=== PATIENT | male | born 1930 | race Caucasian/White ===

== ENCOUNTER 2017-01-01 14:53 | Emergency (ER) | payer MEDICARE, OTHER ==
--- NOTE | 2017-01-01 15:32 | ER Document Report ---
ED General <ELIZABET PEACE - Last Filed: 01/01/17 18:56> - General Mode of Arrival: Ambulatory Information source: Patient TRAVEL OUTSIDE OF THE [place] IN LAST 30 DAYS: No <FELTON SALAZAR - Last Filed: 01/01/17 19:52> - General Chief Complaint: Hip Pain Stated Complaint: ABDOMINAL PAIN Time Seen by Provider: 01/01/17 15:10 Notes: Patient is an 86 year old male that presents to the emergency department today with complaints of left groin pain. Patient states he was getting out of bed this morning and "heard a pop" and has been unable to ambulate since then. Patient states that he has0 been having frequent urination issues for quite some time, stating he usually urinates every 30 minutes. Patient states that he was recently put on 28 days of antibiotics secondary to a prostate infection. 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 A biopsy is scheduled for 01/11. Patient also mentions that two nights ago he had a syncopal episode. Patient states he had no injuries during the fall. (FELTON SALAZAR) Past Medical History - General Information source: Patient, Emergency Med Personnel - Social History Smoking Status: Never Smoker Cigarette use (# per day): No Chew tobacco use (# tins/day): No Frequency of alcohol use: None Drug Abuse: None Lives with: Family Family History: Reviewed & Not Pertinent Patient has suicidal ideation: No Patient has homicidal ideation: No - Past Medical History Cardiac Medical History: Reports: Hx Atrial Fibrillation, Hx Congestive Heart Failure, Hx Hypercholesterolemia, Hx Hypertension Endocrine Medical History: Reports: Hx Diabetes Mellitus Type 2 Malignancy Medical History: Reports Hx Prostate Cancer - ? Mass on prostate, biopsy scheduled for 01/09/17, Reports Hx Skin Cancer Past Surgical History: Reports: Hx Appendectomy, Hx Cholecystectomy, Hx Kidney ( Renal Surgery) - stones <FELTON SALAZAR - Last Filed: 01/01/17 19:52> Review of Systems - Review of Systems Constitutional: No symptoms reported EENT: No symptoms reported Cardiovascular: No symptoms reported Respiratory: No symptoms reported Gastrointestinal: No symptoms reported Genitourinary: See HPI, Dysuria, Frequency, Pain Male Genitourinary: No symptoms reported Musculoskeletal: See HPI, Other - left leg, left groin pain Skin: No symptoms reported Hematologic/Lymphatic: No symptoms reported Neurological/Psychological: No symptoms reported -: Yes All other systems reviewed and negative <FELTON SALAZAR - Last Filed: 01/01/17 19:52> Physical Exam <ELIZABET PEACE - Last Filed: 01/01/17 18:56> <FELTON SALAZAR - Last Filed: 01/01/17 19:52> - Vital signs Vitals: Temp Pulse Resp BP Pulse Ox 98.4 F 59 L 18 128/71 H 93 01/01/17 15:40 01/01/17 15:40 01/01/17 15:40 01/01/17 15:40 01/01/17 15:40 - Notes Notes: Physical Exam: General: Alert, appears age appropriate. HEENT: Normocephalic. Atraumatic. PERRL. Extraocular movements intact. Oropharynx clear. Neck: Supple. Non-tender. Respiratory: No respiratory distress. Clear and equal breath sounds bilaterally. Cardiovascular: Regular rate and rhythm. Abdominal: Obese. Non-tender. No distension. Normal Bowel Sounds. Back: Non-tender. No deformity or step off. Extremities: Moves all four extremities. Upper extremities: 3+ pitting edema bilaterally. Normal ROM. Lower extremities: Left groin tenderness with palpation musculature tenderness with palpation, no hernia appreciated. Neurological: Normal cognition. AAOx4. Normal speech. Psychological: Normal affect. Normal Mood. Skin: Warm. Dry. Normal color. (FELTON SALAZAR) Course - Laboratory Result Diagrams: 01/01/17 17:40 01/01/17 17:40 - Diagnostic Test Radiology reviewed: Image reviewed - KUB shows a lot of stool in the right colon , Reports reviewed - No acute process <ELIZABET PEACE - Last Filed: 01/01/17 18:56> - Laboratory Result Diagrams: 01/01/17 17:40 01/01/17 17:40 <FELTON SALAZAR - Last Filed: 01/01/17 19:52> - Re-evaluation Re-evalutation: 01/01/17 18:58 Patient laboratory evaluation is unremarkable. X-ray does show a lot of stool in the right colon. He does take MiraLAX on daily basis prior to starting pain medication recently. His daughter is a retired nurse and is at the bedside. She understands the difficulties he will be experiencing with his morbid obesity , unsteadiness on his feet, and newly acquired groin strain. She understands the need to have someone lift his legs up for him as he gets in and out of the bed. The need to have someone standing with him as he tries to walk with a walker. She will call his primary care provider tomorrow to arrange for some home care if it appears it will be needed. (ELIZABET PEACE) - Vital Signs Vital signs: Temp Pulse Resp BP Pulse Ox 97.9 F 64 16 109/74 98 01/01/17 19:00 01/01/17 19:00 01/01/17 19:00 01/01/17 19:00 01/01/17 19:00 - Laboratory Laboratory results interpreted by me: 01/01/17 01/01/17 01/01/17 15:55 17:40 17:40 RBC 3.88 L Hgb 12.8 L Hct 37.6 L RDW 16.3 H Lymphocytes % 7.9 L Eosinophils % 6.5 H BUN 39 H Creatinine 1.36 H Est GFR (Non-Af Amer) 50 L Total Protein 5.6 L Albumin 3.4 L Urine Blood MODERATE H Ur Leukocyte Esterase TRACE H Discharge <ELIZABET PEACE - Last Filed: 01/01/17 18:56> <FELTON SALAZAR - Last Filed: 01/01/17 19:52> - Discharge Clinical Impression: Groin strain Qualifiers: Encounter type: initial encounter Laterality: left Qualified Code(s): S76.212A - Strain of adductor muscle, fascia and tendon of left thigh, initial encounter Condition: Stable Disposition: HOME, SELF-CARE Additional Instructions: Inguinal Strain: You have an inguinal strain, also known as a pulled groin. This injury causes pain where the lower abdominal wall meets the upper leg. The strain can affect several different muscles and tendons. When it occurs during running, the injury usually affects the tendon or upper muscle fibers of the thigh muscles. With weight lifting, it's the lower fibers of the abdominal wall muscles that are most often strained. Running, lifting, squatting, or even walking can cause pain. A strain can take a few weeks to heal. Apply ice packs during the first couple of days following the injury. Antiinflammatory pain medication can help. Avoid lifting, running, jumping, and other activities that provoke pain. No hernia was found. But sometimes a hernia can begin with the same symptoms as a strain of the groin. If you find a lump or bulge in the groin, pain or swelling in the testicle, abdominal cramping, or vomiting, you should return for re-examination. //////////////////////////////////////////////////////////////////////////////// //////////////////////////////////////////////////////////////////////////////// ///////////////// Use your walker all the time, and have someone assist you when you are up attempting to walk. Have someone lift your legs for you as you get in and out of the bed, and assist you in getting up and down from sitting. Take the pain medications as prescribed if needed. Drink a bottle of citrate of magnesia this evening to help prevent constipation from worsening. Continue your daily MiraLAX, and increase your fluid intake. Call your primary care provider tomorrow to inquire about home health care if it appears it will be needed. RETURN TO THE EMERGENCY ROOM IF ANY NEW OR WORSENING SYMPTOMS. Prescriptions: Oxycodone HCl/Acetaminophen [Percocet 10-325 Mg Tablet] 1 each PO Q6 PRN #25 tablet PRN Reason: For Pain Referrals: DANIEL GOYAL MD [Primary Care Provider] - Follow up tomorrow Scribe Attestation: 01/01/17 15:39 I personally performed the services described in the documentation, reviewed and edited the documentation which was dictated to the scribe in my presence, and it accurately records my words and actions. (ELIZABET PEACE) Scribe Documentation - Scribe Written by Scribe:: Sonu Rivas, 01/01/2017 1842 acting as scribe for :: Samson <FELTON SALAZAR - Last Filed: 01/01/17 19:52>
[2017-01-01 16:12] LABS: APPEARANCE,URINE SLIGHTLY-CLOUDY; BILIRUBIN,URINE NEGATIVE (NEGATIVE); GLUCOSE, URINE NEGATIVE (NEGATIVE); KETONES,URINE NEGATIVE (NEGATIVE); LEUKOCYTE ESTERASE,URINE TRACE (NEGATIVE); NITRITE,URINE NEGATIVE (NEGATIVE); PROTEIN,URINE NEGATIVE (NEGATIVE); URINE SPECIFIC GRAVITY 1.013; UROBILINOGEN,URINE NEGATIVE mg/dL (<2.0)
--- NOTE | 2017-01-01 16:47 | RADIOLOGY REPORT (SQ) ---
EXAM DESCRIPTION: KUB/ABDOMEN (SINGLE VIEW) COMPLETED DATE/TIME: 01/01/2017 4:00 pm REASON FOR STUDY: Left groin strain, constipation COMPARISON: None. NUMBER OF VIEWS: One view. TECHNIQUE: Supine radiographic image of the abdomen acquired. LIMITATIONS: None. FINDINGS: BOWEL GAS PATTERN: Normal bowel gas pattern. No dilated loops. CALCIFICATIONS: No suspicious calcifications. SOFT TISSUES: No gross mass or suggestion of organomegaly. HARDWARE: None in the abdomen. BONES: No acute fracture. No worrisome bone lesions. OTHER: No other significant finding. IMPRESSION: NO RADIOGRAPHIC EVIDENCE FOR ACUTE ABDOMINAL DISEASE. TECHNICAL DOCUMENTATION: JOB ID: [id number] [employer]- All Rights Reserved
[2017-01-01 17:58] LABS: ABSOLUTE EOSINOPHILS # (AUTO) 0.6 10^3/uL (0.0-0.6); ABSOLUTE LYMPHOCYTES (AUTO) 0.7 10^3/uL (0.5-4.7); ABSOLUTE MONOCYTES (AUTO) 1.1 10^3/uL (0.1-1.4); ABSOLUTE NEUT (AUTO) 6.5 10^3/uL (1.7-8.2); BASOPHILS % (AUTO) 0.3 % (0-2); EOSINOPHILS % (AUTO) 6.5 % (0-6); HEMATOCRIT 37.6 % (37.9-51.0); HEMOGLOBIN 12.8 g/dL (13.5-17.0); HGB HCT DIFFERENCE 0.8; LYMPHOCYTES % (AUTO) 7.9 % (13-45); MEAN CORPUSCULAR HEMOGLOBIN 32.9 pg (27.0-33.4); MEAN CORPUSCULAR HGB CONC 33.9 g/dL (32.0-36.0); MEAN CORPUSCULAR VOLUME 97 fl (80-97); MONOCYTES % (AUTO) 12.6 % (3-13); RED BLOOD COUNT 3.88 10^6/uL (4.35-5.55); RED CELL DISTRIBUTION WIDTH 16.3 % (11.5-14.0); SEGMENTED NEUTROPHILS % (AUTO) 72.7 % (42-78); WHITE BLOOD COUNT 8.9 10^3/uL (4.0-10.5)
[2017-01-01 18:19] LABS: ALANINE AMINOTRANSFERASE 34 U/L (21-72); ALBUMIN 3.4 g/dL (3.5-5.0); ALKALINE PHOSPHATASE 81 U/L (38-126); ANION GAP 9 (5-19); ASPARTATE AMINO TRANSFERASE 27 U/L (17-59); BILIRUBIN,DIRECT 0.4 mg/dL (0.0-0.4); BILIRUBIN,TOTAL 0.7 mg/dL (0.2-1.3); BLOOD UREA NITROGEN 39 mg/dL (7-20); CALCIUM 9.4 mg/dL (8.4-10.2); CARBON DIOXIDE 29 mmol/L (22-30); CHLORIDE 105 mmol/L (98-107); CREATININE RESULT 1.36 mg/dL (0.52-1.25); GLUCOSE 92 mg/dL (75-110); POTASSIUM 4.6 mmol/L (3.6-5.0); TOTAL PROTEIN 5.6 g/dL (6.3-8.2)
[2017-01-01 19:01] VITALS: BP 109/74
== END 2017-01-01 19:55 | disposition home or self-care (01) ==
LOC: ER 14:53
DX: S76.212A Strain of adductor muscle, fascia and tendon of left thigh, initial encounter (principal); R10.30 Lower abdominal pain, unspecified; X58.XXXA Exposure to other specified factors, initial encounter; W19.XXXA Unspecified fall, initial encounter
CPT/HCPCS: 36415; 74000; 80053; 81001; 85025; 99284